=== PATIENT | female | born 1965 | race Caucasian/White ===

== ENCOUNTER 2016-05-28 17:56 | Emergency (ER) | payer OTHER ==
--- OUTSIDE RECORDS SUMMARY | 2016-05-28 18:53 | XMS REPORT | Continuity of Care Document ---
:1965 Author Organization [facility] ([facility]) Address [place] [address] Phone [phone] Care Team Providers Name Role Phone Vinnie Antonio Primary Care Provider [phone] Source Comments This disclosure is being made pursuant to the Care Everywhere program, applicable federal and state laws, and may not contain all informaitonavailable regarding this patient.[facility] ([facility]) Active Allergies and Adverse Reactions No Known Allergies Current Medications Prescription Sig. Disp. Refills Start Date End Date Status Soy Isoflavone 40 mg Take by mouth Active Tab daily. CALCIUM Take by mouth Active CARBONATE/VITAMIN D3 daily. (CALTRATE 600 + D PO) MULTIVITAMIN/FOLIC Take by mouth Active ACID/DHA (ONE-A-DAY daily. VITACRAVES OMEGA-3 PO) cyclobenzaprine 5 mg Take 1 Tab by mouth 35 Tab 0 05/20/2012 Active tablet at bedtime as needed. Indications: Myofacial Pain HYDROCODONE-ACETAMINOPH Take 1 Tab by mouth 20 Tab 0 07/02/2012 Active EN 5-325 mg per tablet every 4 hours as needed for Pain. DO NOT EXCEED 3,000 MG ACETAMINOPHEN PER DAY FROM ALL SOURCES Indications: PAIN IBUPROFEN 800 mg tablet Take 1 Tab by mouth 20 Tab 0 07/02/2012 Active every 6 hours as needed for Pain. DO NOT EXCEED 3,200 MG IBUPROFEN PER DAY FROM ALL SOURCES Indications: PAIN Active Problems Problem Noted Date Polycystic ovaries 12/05/2005 Abdominal or pelvic swelling, mass, or lump, generalized 10/12/2005 Social History Tobacco Use Types Packs/Day Years Used Date Current Every Day Smoker Cigarettes 30 Tobacco Cessation:Ready to Quit: Yes Comments: Last Filed Vital Signs Vital Sign Reading Time Taken Blood Pressure 124/67 07/02/2012 1:57 PM CDT Pulse 80 07/02/2012 1:57 PM CDT Temperature - - Respiratory Rate - - Height 1.655 m (5' 5.15") 10/12/2005 1:50 PM CDT Weight 58.496 kg (128 lb 15.4 oz) 10/12/2005 1:50 PM CDT Body Mass Index 21.36 10/12/2005 1:50 PM CDT Oxygen Saturation 100% 07/02/2012 1:57 PM CDT Plan of Care Health Maintenance Due Date Last Done Comments Hepatitis B Vaccine (1 of 3 - Primary Series) 1965 Tdap Vaccine 1976 Lipid Disorder Screening 06/23/1983 MMR Vaccine 06/23/1983 Td Vaccine 06/23/1983 Pneumococcal Vaccine (1 of 1 - PPSV23) 1984 Cervical Cancer Screening 06/23/1995 Mammogram 2005 Colonoscopy 2015 Influenza Vaccine: Seasonal (#1) 10/10/2015 Results from Last 3 Months Not on file
[2016-05-28] MEDS ORDERED: METHYLPREDNISOLONE SOD SUCC/PF 125 MG/2 ML VIAL IV ONE (19:05)
[2016-05-28] MEDS ORDERED: diphenhydrAMINE HCL 50 MG/ML VIAL IV ONE (19:05)
[2016-05-28] MEDS ORDERED: FAMOTIDINE 10 MG/ML VIAL IV ONE ×2 (19:05→19:22)
--- NOTE | 2016-05-28 19:15 | ERNOTE ---
Allergy Symptoms - ER Date of Service: 05/28/16 Presenting Symptoms: skin rash Time Seen by Provider: 05/28/16 18:46 Source: patient, family, RN notes reviewed Exam Limitations: no limitations Immunizations: IMMUNIZATION HX Immunizations Up to Date Yes Allergies/Adverse Reactions: Allergies No Known Allergies Allergy (Unverified 05/28/16 18:01) Home Medications: HOME MEDICATIONS predniSONE [Prednisone] 1 tab PO DAILY #5 tab 05/28/16 [Last Taken Unknown] - History of Present Illness Narrative: 50 y/o female brought to the ED by her for a rash that began yesterday. She reports having a red, pruritic, circular rash that began in her groin and has since spread. She has used topical benadryl and cortisone cream without improvement. She denies using any new detergents or hygiene products. 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 Absent: fever, malaise EYE: Absent: eye pain, eye discharge ENT: Absent: nose congestion, sore throat, throat swelling Respiratory: Absent: shortness of breath, cough, wheezing, stridor Cardiology: Present: no symptoms reported Gastrointestinal/Abdominal: Absent: nausea, vomiting Genitourinary: Present: no symptoms reported Musculoskeletal: Absent: muscle pain, joint pain Skin: Present: rash. Absent: dryness Neurological: Absent: headache, dizziness/light-headedness Endocrine: Present: no symptoms reported Hematologic/Lymphatic: Present: no symptoms reported Psych: Present: no symptoms reported - Patient's Past Medical History Patient History - Medical: No pertinent hx Patient History - Cardiac/Respiratory: No pertinent hx Patient History - Cancer: No Hx of Cancer Patient History - Surgical Procedures: Hysterectomy, T & A Patient History - Other: None - Social History Living Situations: home Abuse History: No History of abuse Psych History: No pertinent hx Smoking Status: Current every day smoker Cigarettes Packs Per Day: 1 Have you smoked in the past 12 months: Yes Do you dip or chew tobacco: No Patient requests Smoking Cessation Consult: No Initiate information on Smoking Cessation: No Alcohol Use: none Drug Use: none - Immunizations Immunizations Up to Date: Yes Physical Exam - Physical Exam General Appearance: Present: wd/wn, alert, no apparent distress, anxious Eye Exam: Normal inspection: bilateral Ears, Nose, Throat: Present: normal ENT inspection Neck: Present: normal inspection, nontender, supple Respiratory: Present: no respiratory distress, normal breath sounds, no accessory muscle use, lungs clear Cardiovascular/Chest: Present: regular rate, rhythm, no murmur, normal peripheral pulses Extremity Exam: Present: normal range of motion, no edema Neurological Exam: Present: alert, oriented, normal mood/affect, no motor/ sensory deficits Skin Exam: Present: warm/dry, skin rash - wheals scattered over trunk and to a lesser degree on extremities ED Progress - Vital Signs Patient's Vital Signs:: I have reviewed the patient's vital signs. Vital Signs: Vital Signs 05/28/16 05/28/16 18:01 18:05 Temperature 36.4 C L Pulse Rate 84 Respiratory 16 16 Rate Blood Pressure 127/81 O2 Sat by Pulse 98 98 Oximetry - Progress/Reassessment Chief Complaint: Allergic Reaction Progress:: Improved Progress Note-Subjective: 05/28/16 20:08 Verbalizes relief of itching after meds, urticaria still present but redness is fading Departure Clinical Impression: Urticaria - Departure Disposition: Home self-care Condition: Good Instructions: Hives, [id number] Additional Instructions: Start prednisone tomorrow - take in the mornings with food Take Benadryl 1 or 2 tablets every 6 hours as needed for itching Return for worsening symptoms Referrals: Antonio Birmingham MD [Primary Care Provider] - Prescriptions: predniSONE [Prednisone] 1 tab PO DAILY #5 tab
[2016-05-28] MEDS ORDERED: diphenhydrAMINE HCL 50 MG/ML VIAL ONE (19:22)
[2016-05-28] MEDS ORDERED: METHYLPREDNISOLONE SOD SUCC/PF 125 MG/2 ML VIAL ONE (19:22)
[2016-05-28 20:12] VITALS: BP 118/68
== END 2016-05-28 20:11 | disposition home or self-care (01) ==
LOC: ER 17:56
DX: L50.9 Urticaria, unspecified (principal); Z72.0 Tobacco use